=== PATIENT | female | born 1995 | race Caucasian/White ===

== ENCOUNTER 2017-02-15 00:14 | Observation (INO) | payer MEDICARE ==
[2017-02-15 04:39] LABS: HEMOGLOBIN 10.6 gm/dl (12.3-15.3); RED BLOOD COUNT 3.57 M/UL (4.00-5.10); WHITE BLOOD COUNT 8.8 K/UL (4.5-11.0)
== END 2017-02-16 09:39 | disposition home or self-care (01) ==
LOC: GENOP 00:14 → OB 08:20
PROVIDERS: ADMIT Obstetrics & Gynecology
DX: O99.513 Diseases of the respiratory system complicating pregnancy, third trimester (principal); J06.9 Acute upper respiratory infection, unspecified; O21.9 Vomiting of pregnancy, unspecified; E86.0 Dehydration; Z3A.38 38 weeks gestation of pregnancy; Z79.899 Other long term (current) drug therapy
CPT/HCPCS: 36415; 81001; 85025; 87081; 87880; 96360; 96361; 96374; 96375; G0378; J2405; J7120

== ENCOUNTER 2017-02-26 17:32 | Emergency (ER) | payer MEDICARE | END 2017-02-26 19:08 | disposition home or self-care (01) | LOC: ER1 17:32 | DX: O99.89 Other specified diseases and conditions complicating pregnancy, childbirth and the puerperium (principal); K08.89 Other specified disorders of teeth and supporting structures; O99.513 Diseases of the respiratory system complicating pregnancy, third trimester; J06.9 Acute upper respiratory infection, unspecified; Z3A.39 39 weeks gestation of pregnancy | CPT/HCPCS: 99283 ==

== ENCOUNTER 2017-02-28 16:40 | Inpatient (IN) | payer MEDICARE ==
[~2017-02-28] VITALS: Ht 154.9 cm; Wt 69.4 kg
[2017-02-28 17:22] LABS: HEMOGLOBIN 12.1 gm/dl (12.3-15.3); RED BLOOD COUNT 3.96 M/UL (4.00-5.10); WHITE BLOOD COUNT 11.5 K/UL (4.5-11.0)
[2017-03-02 04:00] LABS: HEMOGLOBIN 9.5 gm/dl (12.3-15.3)
[2017-03-03] MEDS ORDERED: IBUPROFEN600 MG PO (12:02)
== END 2017-03-03 15:15 | disposition home or self-care (01) | DRG 766 ==
LOC: GENOP 16:40 → OB 16:50
PROVIDERS: ADMIT Obstetrics & Gynecology
PROC: 10907ZC Drainage of Amniotic Fluid, Therapeutic from Products of Conception, Via Natural or Artificial Opening (ICD-10-PCS; 2017-03-01)
PROC: 10H073Z Insertion of Monitoring Electrode into Products of Conception, Via Natural or Artificial Opening (ICD-10-PCS; 2017-03-01)
PROC: 3E0234Z Introduction of Serum, Toxoid and Vaccine into Muscle, Percutaneous Approach (ICD-10-PCS; 2017-03-01)
PROC: 3E033VJ Introduction of Other Hormone into Peripheral Vein, Percutaneous Approach (ICD-10-PCS; 2017-03-01)
PROC: 3E0234Z Introduction of Serum, Toxoid and Vaccine into Muscle, Percutaneous Approach (ICD-10-PCS; 2017-03-01)
PROC: 10D00Z1 Extraction of Products of Conception, Low, Open Approach (ICD-10-PCS; principal; 2017-03-01 16:27)
DX: O75.89 Other specified complications of labor and delivery (principal); O36.0930 Maternal care for other rhesus isoimmunization, third trimester, not applicable or unspecified; Z37.0 Single live birth; O62.1 Secondary uterine inertia; O76 Abnormality in fetal heart rate and rhythm complicating labor and delivery; Z3A.39 39 weeks gestation of pregnancy; Z23 Encounter for immunization; Z79.899 Other long term (current) drug therapy; M54.9 Dorsalgia, unspecified; O99.344 Other mental disorders complicating childbirth; F41.9 Anxiety disorder, unspecified
CPT/HCPCS: 36415; 51702; 81001; 82800; 85014; 85018; 85025; 85461; 86900; 86901; 90715; C9113; J0690; J1885; J2210; J2274; J2405; J2550; J2590; J2765; J2795; J3010; J3430; J7030; J7050; J7120; Q2039

== ENCOUNTER 2021-01-26 18:25 | Outpatient (CLI) | payer OTHER ==
[~2021-01-26 18:25] MED LIST: IBUPROFEN600 MG PO; PENVEE K 500 M500 MG PO; XYLOCAINE VISC100 ML EXT
== END 2021-01-26 21:08 | disposition home or self-care (01) ==
LOC: GENOP 18:25
DX: O99.891 Other specified diseases and conditions complicating pregnancy (principal); R10.9 Unspecified abdominal pain; R10.2 Pelvic and perineal pain; Z3A.24 24 weeks gestation of pregnancy
CPT/HCPCS: 81001; 82731; G0463

== ENCOUNTER 2021-03-27 13:37 | Emergency (ER) | payer OTHER ==
[2021-03-27] MEDS ORDERED: AMOXICILLIN875 MG PO (15:39)
== END 2021-03-27 15:49 | disposition home or self-care (01) ==
LOC: ER1 13:37
DX: K08.89 Other specified disorders of teeth and supporting structures (principal)
CPT/HCPCS: 99282

== ENCOUNTER 2021-04-14 09:34 | Emergency (ER) | payer OTHER ==
[~2021-04-14 09:34] MED LIST changes: +AMOXICILLIN875 MG PO
== END 2021-04-14 12:55 | disposition home or self-care (01) ==
LOC: ER1 09:34
DX: O99.513 Diseases of the respiratory system complicating pregnancy, third trimester (principal); J06.9 Acute upper respiratory infection, unspecified; Z3A.35 35 weeks gestation of pregnancy; Z20.822 Contact with and (suspected) exposure to COVID-19
CPT/HCPCS: 0240U; 71045; 81001; 87081; 87880; 93005; 96360; 99285

== ENCOUNTER 2021-04-14 12:55 | Outpatient (CLI) | payer OTHER | END 2021-04-14 17:13 | disposition home or self-care (01) | LOC: GENOP 12:55 | DX: O62.9 Abnormality of forces of labor, unspecified (principal); Z3A.32 32 weeks gestation of pregnancy | CPT/HCPCS: 81001; 96360 ==

== ENCOUNTER 2021-04-21 02:07 | Emergency (ER) | payer OTHER | END 2021-04-21 03:06 | disposition admitted as inpatient to this hospital (09) | LOC: ER1 02:07 | DX: T78.40XA Allergy, unspecified, initial encounter (principal); Z3A.36 36 weeks gestation of pregnancy | CPT/HCPCS: 96360; 96372; 99284; J0702 ==

== ENCOUNTER 2021-05-06 15:26 | Outpatient (CLI) | payer OTHER ==
[2021-05-06 16:14] LABS: HEMOGLOBIN 11.7 gm/dl (12.3-15.3); RED BLOOD COUNT 3.83 M/UL (4.00-5.10); WHITE BLOOD COUNT 9.9 K/UL (4.5-11.0)
== END 2021-05-06 16:35 | disposition home or self-care (01) ==
LOC: GENOP 15:26
PROVIDERS: Obstetrics & Gynecology
DX: Z01.812 Encounter for preprocedural laboratory examination (principal); O34.219 Maternal care for unspecified type scar from previous cesarean delivery
CPT/HCPCS: 36415; 81001; 85025

== ENCOUNTER 2021-05-09 05:17 | Inpatient (IN) | payer OTHER ==
[~2021-05-09] VITALS: Ht 154.9 cm; Wt 75.3 kg
[2021-05-09] MEDS ORDERED: PRENATAL VITAM1 EAC8 PO (06:09)
[2021-05-09] MEDS ORDERED: DOCUSATE SODIU100 MG PO (08:11)
[2021-05-09] MEDS ORDERED: IBUPROFEN600 MG PO (08:11)
[2021-05-09] MEDS ORDERED: HYDROCODON-ACE1 EAC4 PO (08:11)
[2021-05-10 05:57] LABS: HEMOGLOBIN 9.6 gm/dl (12.3-15.3)
[2021-05-11] MEDS ORDERED: VISTARIL 50 MG50 MG PO (19:02)
== END 2021-05-11 12:07 | disposition home or self-care (01) | DRG 788 ==
LOC: OB 05:17
PROVIDERS: ADMIT Obstetrics & Gynecology
PROC: 10D00Z1 Extraction of Products of Conception, Low, Open Approach (ICD-10-PCS; principal; 2021-05-09 07:30)
DX: O34.211 Maternal care for low transverse scar from previous cesarean delivery (principal); Z3A.39 39 weeks gestation of pregnancy; Z37.0 Single live birth; Z81.8 Family history of other mental and behavioral disorders; Z82.49 Family history of ischemic heart disease and other diseases of the circulatory system; Z82.5 Family history of asthma and other chronic lower respiratory diseases; Z82.0 Family history of epilepsy and other diseases of the nervous system
CPT/HCPCS: 36415; 81001; 82800; 85014; 85018; 85025; 86900; 86901; C9113; J0690; J1885; J2250; J2274; J2370; J2405; J2550; J2590; J3010; J7120; U0003

== ENCOUNTER 2021-05-11 16:39 | Emergency (ER) | payer OTHER ==
[~2021-05-11 16:39] MED LIST changes: +DOCUSATE SODIU100 MG PO; +HYDROCODON-ACE1 EAC4 PO; +PRENATAL VITAM1 EAC8 PO
[2021-05-11] MEDS ORDERED: VISTARIL 50 MG50 MG PO (19:02)
== END 2021-05-11 19:07 | disposition home or self-care (01) ==
LOC: ER1 16:39
DX: J33.9 Nasal polyp, unspecified (principal); F41.0 Panic disorder [episodic paroxysmal anxiety]; J32.9 Chronic sinusitis, unspecified; Z20.822 Contact with and (suspected) exposure to COVID-19
CPT/HCPCS: 99283; Q0177